=== PATIENT | female | born 1945 | race African-American/Black ===

== ENCOUNTER 2017-12-24 13:33 | Outpatient (CLI) | payer MEDICARE, OTHER ==
[~2017-12-24 13:33] MED LIST: SIMVASTATIN40 MG ORAL; [UNRECOGNIZED DRUG - REMARK] ORAL
[2017-12-25] MEDS ORDERED: GEODON40 MG ORAL (09:16)
--- NOTE | 2017-12-25 09:21 | GI Initial Consult Note ---
History of Present Illness General Date patient seen: Dec 24, 2017 Time patient seen: 15:00 Referring physician: YAHIR Reason for Consultation: ELEVATED CA19-9 Present Illness HPI 72 year old female patient referred for elevated CA 19-9 with history of pancreatic abscess. She presents today with complaint of GERD, constipation, nausea without vomiting and abdominal bloating. Her last colonoscopy was approximately 4 years ago Denies any unintentional weight loss or changes in dietary habits. No signs of abuse or neglect. Patient is not fall risk. Home Meds Reported Medications Ziprasidone Hcl* (GEODON*) 40 Mg Capsule, 60 MG ORAL DAILY, #30 CAP 0 Refills 12/25/17 Simvastatin (ZOCOR) 40 Mg Tablet, 40 MG ORAL BEDTIME, TAB 03/04/13 [Htn Pill] No Conflict Check, 1 TAB ORAL DAILY 03/04/13 Med list reviewed/reconciled: Yes Allergies: Coded Allergies: No Known Allergies (Unverified , 02/23/13) Patient History History Provided By: Patient PMH Narrative GERD Asthma Depression HTN Heart Disease Past Surgical History: R Foot Family History Narrative Family history of DM, heart disease. Social History: Reports: smoking, other - coffee Review of Systems All Other Systems: negative except mentioned in HPI Physical Exam T 97.5 BP 150/75 65 HR 95 RA HT 5'7 WT 149.5 lbs Sp02 EP Interpretation: reviewed, normal General Appearance: well appearing, no apparent distress, alert Head: normocephalic EENT: PERRL/EOMI, normal ENT inspection Neck: supple Respiratory: normal breath sounds, no respiratory distress Cardiovascular: normal rate Gastrointestinal: normal inspection, non tender, soft, normal bowel sounds, non -distended Rectal: deferred Genitourinary: no CVA tenderness Musculoskeletal: normal inspection, back normal Neurologic: normal inspection, alert, oriented x3, responsive Psychiatric: normal inspection, judgement/insight normal, memory normal Skin: normal inspection, normal color, no rash, warm/dry, palpation normal, well hydrated Lymphatic: normal inspection, no adenopathy GI: Plan Problems: (1) GERD (gastroesophageal reflux disease) (2) High serum carbohydrate antigen 19-9 (CA19-9) (3) Pancreatic abscess (4) Asthma (5) Depression (6) HTN (hypertension) (7) Heart disease (8) Constipated (9) Abdominal bloating (10) Colonoscopy planned Plan Plan for EGD/colonoscopy 01/31/18. - CLD & (Nulytely/Suprep/Movi-Prep) prep instructions given and acknowledged by patient. - NPO @ [place] day prior procedure explained. Will scheduled EUS after above procedure labs to be drawn on procedure date >> CBC, CMP, Amylase/Lipase, CEA, CA19-9 Trial of Linzess 72mcg and VSL#[address] Rebolledo. Thank you for this patient referral. The patient was seen and examined at bedside and all new and available data was reviewed in the patients chart. I agree with the above findings, impression and plan. (Patient seen earlier today. Signature stamp does not reflect patient encounter time.). - MD Noy GarciaNorthern Cochise Community HospitalSang ORACLE DEVELOPER Dec 25, 2017 09:21
== END 2017-12-24 13:35 | disposition home or self-care (01) ==
LOC: PAN 13:33
DX: K21.9 Gastro-esophageal reflux disease without esophagitis (principal); K85.90 Acute pancreatitis without necrosis or infection, unspecified; J45.909 Unspecified asthma, uncomplicated; F32.9 Major depressive disorder, single episode, unspecified; I11.9 Hypertensive heart disease without heart failure; K59.00 Constipation, unspecified; R14.0 Abdominal distension (gaseous); F17.200 Nicotine dependence, unspecified, uncomplicated
CPT/HCPCS: 99202

== ENCOUNTER 2018-01-12 10:29 | Outpatient (CLI) | payer MEDICARE, OTHER ==
[~2018-01-12 10:29] MED LIST changes: +BISACODYL5 MG ORAL; +GEODON40 MG ORAL; +LINZESS145 MCG PO
[2018-01-12 11:04] VITALS: BP 131/52
--- NOTE | 2018-01-13 12:20 | GI Progress Note ---
Assessment/Plan Problems: (1) High serum carbohydrate antigen 19-9 (CA19-9) ICD Codes: R79.89 - Other specified abnormal findings of blood chemistry SNOMED: 482852568, 966559018 (2) Pancreatic abscess ICD Codes: K85.90 - Acute pancreatitis without necrosis or infection, unspecified SNOMED: 25044827 (3) Constipated ICD Codes: K59.00 - Constipation, unspecified SNOMED: 45695872 (4) Asthma ICD Codes: J45.909 - Unspecified asthma, uncomplicated SNOMED: 354282442 (5) GERD (gastroesophageal reflux disease) ICD Codes: K21.9 - Gastro-esophageal reflux disease without esophagitis SNOMED: 862338752 (6) Abdominal bloating ICD Codes: R14.0 - Abdominal distension (gaseous) SNOMED: 935874006 (7) Gastritis ICD Codes: K29.70 - Gastritis, unspecified, without bleeding SNOMED: 7460231 (8) Antral erosion ICD Codes: K25.9 - Gastric ulcer, unspecified as acute or chronic, without hemorrhage or perforation SNOMED: 66894011, 124261169 Status: stable Status Narrative Seen with Dr. Rebolledo. Assessment/Plan SUMMARY OF FINDINGS reviewed with patient: 1. Multiple antral erosions. 2. Gastritis, status post biopsy. 3. Fair colonic prep. 4. Internal hemorrhoids. RECOMMENDATIONS: 1. Follow up biopsy results and treat accordingly. 2. We will start the patient on PPI daily given these multiple erosions pending biopsy results. 3. Given this prep, the patient will need repeat colonoscopy in three years. EUS scheduled January 18, 2018 to evaluate pancreatic mass. - NPO @ [place] day prior procedure explained. The patient was seen and examined at bedside and all new and available data was reviewed in the patients chart. I agree with the above findings, impression and plan. (Patient seen earlier today. Signature stamp does not reflect patient encounter time.). - Venkata Rebolledo MD Subjective Gastrointestinal/Abdominal: Reports: no symptoms Objective T 98.2 BP 131/57 P 76 95 RA General Appearance: WD/WN, no apparent distress, alert Cardiovascular: normal rate Respiratory/Chest: normal breath sounds, no respiratory distress Abdominal Exam: normal bowel sounds, non tender, soft Extremities: normal range of motion, non-tender Chaparro Villafuerte ASSEMBLER INSTALLER GENERAL Jan 13, 2018 12:20
== END 2018-01-12 11:01 | disposition home or self-care (01) ==
LOC: PAN 10:29
DX: K85.90 Acute pancreatitis without necrosis or infection, unspecified (principal); R79.89 Other specified abnormal findings of blood chemistry; K59.00 Constipation, unspecified; J45.909 Unspecified asthma, uncomplicated; K21.9 Gastro-esophageal reflux disease without esophagitis; R14.0 Abdominal distension (gaseous); K29.70 Gastritis, unspecified, without bleeding; K25.9 Gastric ulcer, unspecified as acute or chronic, without hemorrhage or perforation; K64.8 Other hemorrhoids
CPT/HCPCS: 99212

== ENCOUNTER → 2018-01-18 | Day surgery (SDC) | payer MEDICARE, OTHER ==
[2018-01-18] VITALS (10 sets, daily range): BP systolic 120–163; BP diastolic 52–78
[~2018-01-18] VITALS: Ht 170.2 cm; Wt 68.0 kg
[~2018-01-18] MED LIST changes: +Atropine Inj 1mg/10ml Syr IV PRN; +BP MED PO; +DiphenhydrAMINE 50mg/ml Inj IVP PRN; +HYDROcodone/Acetamin 7.5/325 tab ORAL PRN; +Hydromorphone 0.5mg/0.5ml inj IVP PRN; +Ketorolac 30mg Inj IV PRN; +LORazepam Inj 2mg/ml 1ml IV PRN; +LR 1000ml 1,000 ML IVLG SCH; +LR 1000ml ONE; +Labetalol 5mg/ml 20ml vial IV PRN; +Lidocaine 1% MPF 10mg/ml 5ml ONE; +Metoclopramide 10mg/2ml Inj IVP PRN; +Midazolam 2mg/2ml Inj IVP PRN; +Midazolam 2mg/2ml Inj ONE; +Norco 5mg/325mg tab ORAL PRN; +Propofol 200mg/20ml IV ONE; +fentaNYL 100 mcg/2 mL IV PRN; +oxyCODONE HCL/Acetaminophen 5/325mg ORAL PRN
--- NOTE | 2018-01-18 10:22 | Pre-Procedure Note/Attestation ---
Pre-Procedure Note/Attestation Complete Prior to Procedure Planned Procedure: not applicable Procedure Narrative: eus Indications for Procedure Pre-Operative Diagnosis: elevated CA19-9 Attestation I attest that I discussed the nature of the procedure; its benefits; risks and complications; and alternatives (and the risks and benefits of such alternatives ), prior to the procedure, with the patient (or the patient's legal b2b outside sales representative). I attest that, if there was a reasonable possibility of needing a blood transfusion, the patient (or the patient's legal b2b outside sales representative) was given the [facility] standardized written summary, pursuant to the Adam Pedrito Blood Safety Act ([place] Health and Safety Code # 1645, as amended). I attest that I re-evaluated the patient just prior to the surgery and that there has been no change in the patient's H&P, except as documented below: Venkata Rebolledo MD Jan 18, 2018 10:22
--- NOTE | 2018-01-18 10:23 | Short Stay Surgery H&P ---
History of Present Illness History of Present Illness Chief Complaint see recent office note HPI Natasha Dyer is a 72 year old female who was admitted on for Pancreatic Mass Patient History Allergies: Coded Allergies: No Known Allergies (Unverified , 01/18/18) Medication History Scheduled Bisacodyl* (Dulcolax*), 5 MG ORAL DAILY, (Reported) Linaclotide (Linzess), 72 MCG PO DAILY, (Reported) Physical Exam Vital Signs Last Vital Signs Date Time Temp Pulse Resp B/P (MAP) Pulse Ox O2 Delivery O2 Flow Rate FiO2 01/18/18 10:09 Room Air 01/18/18 10:02 98.5 65 18 148/73 (98) 98 98.5 Plan Attestation Are the patient's medical conditions optimized for surgery? Venkata Rebolledo MD Jan 18, 2018 10:23
--- NOTE | 2018-01-18 10:58 | Anethesia Preoperative Eval ---
Anesthesia Pre-op PMH/ROS General Date of Evaluation: Jan 18, 2018 Time of Evaluation: 10:39 Anesthesiologist: Reyna ASA Score: ASA 3 Mallampati Score Class I : Soft palate, uvula, fauces, pillars visible Class II: Soft palate, uvula, fauces visible Class III: Soft palate, base of uvula visible Class IV: Only hard plate visible Mallampati Classification: Class II Surgeon: Kesha Diagnosis: Pancreatic Mass Surgical Procedure: EUS/EGD Anesthesia History: none Family History: no anesthesia problems Allergies: Coded Allergies: No Known Allergies (Unverified , 01/18/18) Medications: see eMAR Past Medical History Cardiovascular: Reports: HTN, other - HL Pulmonary: Reports: asthma Gastrointestinal/Genitourinary: Reports: GERD - Gasritis Hematology/Immune: Reports: anemia, other - Pancreatic Mass PSxH Narrative: TL Anesthesia Pre-op Phys. Exam Physician Exam Last Vital Signs Date Time Temp Pulse Resp B/P (MAP) Pulse Ox O2 Delivery O2 Flow Rate FiO2 01/18/18 10:09 Room Air 01/18/18 10:02 98.5 65 18 148/73 (98) 98 98.5 Constitutional: NAD Neurologic: CN 2-12 intact Cardiovascular: RRR Respiratory: CTA Gastrointestinal: S/NT/ND Airway Exam Mallampati Score: Class II MO: limited ROM: limited Teeth: missing, intact Anesthesia Pre-op A/P Risk Assessment & Plan Assessment: ASA 3 Plan: TIVA Status Change Before Surgery: No Javi Orellana MD Jan 18, 2018 10:58
--- NOTE | 2018-01-18 10:59 | Immediate Post-Op Evaluation ---
Immediate Post-Op Evalulation Immediate Post-Op Evalulation Procedure: EUA/EGD Date of Evaluation: Jan 18, 2018 Time of Evaluation: 11:32 IV Fluids: 300 LR Blood Products: 0 Estimated Blood Loss: 1 Urinary Output: 0 Blood Pressure Systolic: 122 Blood Pressure Diastolic: 63 Pulse Rate: 56 Respiratory Rate: 16 O2 Sat by Pulse Oximetry: 100 Temperature (Fahrenheit): 98 Pain Score (1-10): 1 Nausea: No Vomiting: No Complications 0 Patient Status: awake, reacts, patent, none Hydration Status: adequate Javi Orellana MD Jan 18, 2018 10:59
--- NOTE | 2018-01-18 11:00 | 48 Hour Post Anesthesia Eval ---
Post Anesthesia Evaluation Procedure: EUA/EGD Date of Evaluation: Jan 18, 2018 Time of Evaluation: 13:42 Blood Pressure Systolic: 146 0: 81 Pulse Rate: 67 Respiratory Rate: 18 Temperature (Fahrenheit): 98.4 O2 Sat by Pulse Oximetry: 98 Airway: patent Nausea: No Vomiting: No Pain Intensity: 1 Hydration Status: adequate Cardiopulmonary Status: Stable Mental Status/LOC: patient returned to baseline Follow-up Care/Observations: 0 Post-Anesthesia Complications: 0 Follow-up care needed: ready to discharge Javi Orellana MD Jan 18, 2018 11:00
--- NOTE | 2018-01-18 11:42 | Endoscopy Procedure Note ---
Endoscopy Procedure Note General Indication for Procedure: elevated CA 19-9 Procedures Performed: EGD Operative Findings/Diagnosis: panc cyst Specimen: yes Pt Tolerated Procedure Well: Yes Estimated Blood Loss: none Anesthesia Anesthesiologist: regla Anesthesia: MAC Inserted Devices Implant(s) used?: No GI Core Measures 50 yrs or older w/o bx or poly: Not Applicable 10yrs. F/U not recommended: Not Applicable Venkata Rebolledo MD Jan 18, 2018 11:42
--- NOTE | 2018-01-18 17:15 | Procedure Note ---
DATE OF PROCEDURE: 01/18/2018 SURGEON: Venkata Rebolledo M.D. ANESTHESIOLOGIST: Dr. Orellana. PROCEDURE: Endoscopic ultrasound. ANESTHESIA: Per Dr. Orellana. INSTRUMENT: Olympus EUS scope. INDICATION: History of pancreatic abscess, elevated CA 19-9. The procedure, risks, benefits, and possible consequences, including hemorrhage, aspiration, perforation and infection, and alternative treatments, were explained to the patient/legal guardian by Dr. Venkata Rebolledo and the patient/legal guardian understood and accepted these risks. DESCRIPTION OF PROCEDURE: After informed consent was obtained and the patient was adequately sedated, EUS scope was advanced from the mouth into the second portion of the duodenum and pancreatic parenchyma was carefully examined through the gastroduodenal mucosa. Starting scanning at GE junction, celiac axis was evaluated. There was no obvious celiac axis lymphadenopathy. Then, the scope was gently advanced into the stomach. The pancreatic body and tail was carefully examined. There was no evidence of any pancreatitis or abscess at this time. Pancreatic duct was measured, about 3 mm in the genu and got smaller as we got close to the tail of the pancreas. There were two about 4-5 mm cystic lesions, one of them for sure was arising from main pancreatic duct, so most probably it is a side branch pancreatic IPMN and there was another one found in the area of the tail of the pancreas which also measured about 4 to 5 mm. Both seem to be connected to the main pancreatic duct and then most probably are side branch IPMNs. Then, the scope was advanced to the duodenal bulb and second portion of duodenum. The head of the pancreas was carefully examined. There was no obvious evidence of any mass or any other pathology in the head of the pancreas. Ampulla was seen. The pancreatic duct and common bile duct were not dilated at the ampulla. Gallbladder was not seen. The patient tolerated the procedure very well without any complication. SUMMARY OF FINDINGS: Two cystic lesions of about 4 to 5 mm each arising from main pancreatic duct, highly suspicious for side branch IPMN, otherwise normal EUS examination. RECOMMENDATIONS: The patient will need a follow-up EUS or imaging studies in one year to follow these two cystic lesions. Venkata Ros Rebolledo DR: [place] JOB#: [id number] CC:
--- NOTE | 2018-01-19 14:16 | Cardiology Report ---
APPROVED REPORT EKG Measurement Heart [id number] Normal sinus rhythm Normal ECG
== END | disposition home or self-care (01) ==
LOC: GAS 09:31
DX: K86.2 Cyst of pancreas (principal); I10 Essential (primary) hypertension; E78.5 Hyperlipidemia, unspecified; J45.909 Unspecified asthma, uncomplicated; K21.9 Gastro-esophageal reflux disease without esophagitis; D64.9 Anemia, unspecified
CPT/HCPCS: 43237; 93005; J2250; J2704; J7120; 94003; 94150

== ENCOUNTER 2018-02-01 12:50 | Outpatient (CLI) | payer MEDICARE, OTHER ==
[~2018-02-01 12:50] MED LIST changes: -Atropine Inj 1mg/10ml Syr IV PRN; -DiphenhydrAMINE 50mg/ml Inj IVP PRN; -HYDROcodone/Acetamin 7.5/325 tab ORAL PRN; -Hydromorphone 0.5mg/0.5ml inj IVP PRN; -Ketorolac 30mg Inj IV PRN; -LORazepam Inj 2mg/ml 1ml IV PRN; -LR 1000ml 1,000 ML IVLG SCH; -LR 1000ml ONE; -Labetalol 5mg/ml 20ml vial IV PRN; -Lidocaine 1% MPF 10mg/ml 5ml ONE; -Metoclopramide 10mg/2ml Inj IVP PRN; -Midazolam 2mg/2ml Inj IVP PRN; -Midazolam 2mg/2ml Inj ONE; -Norco 5mg/325mg tab ORAL PRN; -Propofol 200mg/20ml IV ONE; -fentaNYL 100 mcg/2 mL IV PRN; -oxyCODONE HCL/Acetaminophen 5/325mg ORAL PRN
[2018-02-01 14:34] VITALS: BP 141/63
--- NOTE | 2018-02-01 15:57 | GI Progress Note ---
Assessment/Plan Problems: (1) Small intestinal bacterial overgrowth ICD Codes: K63.89 - Other specified diseases of intestine SNOMED: 181689009 (2) Antral erosion ICD Codes: K25.9 - Gastric ulcer, unspecified as acute or chronic, without hemorrhage or perforation SNOMED: 15465528, 126937678 (3) Pancreatic abscess ICD Codes: K85.90 - Acute pancreatitis without necrosis or infection, unspecified SNOMED: 44806978 (4) GERD (gastroesophageal reflux disease) ICD Codes: K21.9 - Gastro-esophageal reflux disease without esophagitis SNOMED: 266551793 (5) Abdominal bloating ICD Codes: R14.0 - Abdominal distension (gaseous) SNOMED: 977416701 Status: stable Status Narrative Seen with Dr. Rebolledo. Assessment/Plan Xifaxan trial RTC x 1 month Needs repeat EUS x 1 year to evaluate pancreatic cyst The patient was seen and examined at bedside and all new and available data was reviewed in the patients chart. I agree with the above findings, impression and plan. (Patient seen earlier today. Signature stamp does not reflect patient encounter time.). - Venkata Rebolledo MD Subjective Subjective abdominal bloating Objective Last 24 Hour Vital Signs Date Time Temp Pulse Resp B/P (MAP) Pulse Ox O2 Delivery O2 Flow Rate FiO2 02/01/18 14:34 98.2 67 16 141/63 97 98.2 General Appearance: WD/WN, no apparent distress, alert Cardiovascular: normal rate Respiratory/Chest: normal breath sounds, no respiratory distress Abdominal Exam: normal bowel sounds, non tender, soft Extremities: normal range of motion, non-tender Chaparro Villafuerte INFORMATION SECURITY DIRECTOR Feb 01, 2018 15:57
== END 2018-02-01 13:23 | disposition home or self-care (01) ==
LOC: PAN 12:50
DX: K25.9 Gastric ulcer, unspecified as acute or chronic, without hemorrhage or perforation (principal); K63.89 Other specified diseases of intestine; K85.90 Acute pancreatitis without necrosis or infection, unspecified; K21.9 Gastro-esophageal reflux disease without esophagitis; R14.0 Abdominal distension (gaseous)
CPT/HCPCS: 99212

== ENCOUNTER 2018-02-16 11:33 | Outpatient (CLI) | payer MEDICARE, OTHER ==
[2018-02-16 15:08] VITALS: BP 130/59
--- NOTE | 2018-02-16 16:14 | GI Progress Note ---
Assessment/Plan Problems: (1) Small intestinal bacterial overgrowth ICD Codes: K63.89 - Other specified diseases of intestine SNOMED: 331168695 (2) Pancreatic abscess ICD Codes: K85.90 - Acute pancreatitis without necrosis or infection, unspecified SNOMED: 71644361 (3) GERD (gastroesophageal reflux disease) ICD Codes: K21.9 - Gastro-esophageal reflux disease without esophagitis SNOMED: 084752846 (4) Abdominal bloating ICD Codes: R14.0 - Abdominal distension (gaseous) SNOMED: 924999823 (5) Gastritis ICD Codes: K29.70 - Gastritis, unspecified, without bleeding SNOMED: 2704620 Status: stable Status Narrative Seen with Dr. Rebolledo. Assessment/Plan Complete Xifaxan trial Rx VSL#3 RTC x 1 month repeat EUS x 1 year to evaluate pancreatic cyst The patient was seen and examined at bedside and all new and available data was reviewed in the patients chart. I agree with the above findings, impression and plan. (Patient seen earlier today. Signature stamp does not reflect patient encounter time.). - Venkata Rebolledo MD Subjective Subjective abdominal bloating still present did not complete xifaxan trial, thought it was recalled (but in fact was Valsartan that had a recall) States her VSL #3 works and she needs a refill. Objective Last 24 Hour Vital Signs Date Time Temp Pulse Resp B/P (MAP) Pulse Ox O2 Delivery O2 Flow Rate FiO2 02/16/18 15:08 98.2 80 20 130/59 97 98.2 General Appearance: WD/WN, no apparent distress, alert Cardiovascular: normal rate Respiratory/Chest: normal breath sounds, no respiratory distress Abdominal Exam: normal bowel sounds, non tender, soft Extremities: normal range of motion, non-tender Chaparro Villafuerte ASSISTANT GOLF COURSE SUPERINTENDENT Feb 16, 2018 16:14
== END 2018-02-16 12:05 | disposition home or self-care (01) ==
LOC: PAN 11:33
DX: K85.90 Acute pancreatitis without necrosis or infection, unspecified (principal); K21.9 Gastro-esophageal reflux disease without esophagitis; K63.89 Other specified diseases of intestine; R14.0 Abdominal distension (gaseous); K29.70 Gastritis, unspecified, without bleeding
CPT/HCPCS: G0463

== ENCOUNTER 2018-04-06 10:54 | Outpatient (CLI) | payer MEDICARE ==
[2018-04-06 13:03] VITALS: BP 146/86
[2018-04-06] MEDS ORDERED: VSL#3 PACKET1 EAC1 PO (13:03)
--- NOTE | 2018-04-09 09:41 | GI Progress Note ---
Assessment/Plan Problems: (1) Small intestinal bacterial overgrowth ICD Codes: K63.89 - Other specified diseases of intestine SNOMED: 898369934 (2) Pancreatic abscess ICD Codes: K85.90 - Acute pancreatitis without necrosis or infection, unspecified SNOMED: 23762071 (3) GERD (gastroesophageal reflux disease) ICD Codes: K21.9 - Gastro-esophageal reflux disease without esophagitis SNOMED: 091632811 (4) Abdominal bloating ICD Codes: R14.0 - Abdominal distension (gaseous) SNOMED: 557491291 (5) Gastritis ICD Codes: K29.70 - Gastritis, unspecified, without bleeding SNOMED: 9898015 (6) High serum carbohydrate antigen 19-9 (CA19-9) ICD Codes: R79.89 - Other specified abnormal findings of blood chemistry SNOMED: 246524038, 318160882 (7) Constipated ICD Codes: K59.00 - Constipation, unspecified SNOMED: 31240014 Status: stable Status Narrative Discussed with Dr. Rebolledo. Assessment/Plan cont VSL#3 cont linzess RTC x 3 month repeat EUS x 1 year to evaluate pancreatic cyst The patient was seen and examined at bedside and all new and available data was reviewed in the patients chart. I agree with the above findings, impression and plan. (Patient seen earlier today. Signature stamp does not reflect patient encounter time.). - Venkata Rebolledo MD Subjective Subjective constipation, taking linzess 72mcg abdominal bloating, VSL 900 billion has been helping Objective T 98.1 BP 146/86 P 80 97 RA General Appearance: WD/WN, no apparent distress, alert Cardiovascular: normal rate Respiratory/Chest: normal breath sounds, no respiratory distress Abdominal Exam: normal bowel sounds, non tender, soft Extremities: normal range of motion, non-tender Chaparro Villafuerte NP Apr 09, 2018 09:41
== END 2018-04-06 11:24 | disposition home or self-care (01) ==
LOC: PAN 10:54
DX: K63.89 Other specified diseases of intestine (principal); K85.90 Acute pancreatitis without necrosis or infection, unspecified; K21.9 Gastro-esophageal reflux disease without esophagitis; R14.0 Abdominal distension (gaseous); K29.70 Gastritis, unspecified, without bleeding; R79.89 Other specified abnormal findings of blood chemistry; K59.00 Constipation, unspecified
CPT/HCPCS: 99213

== ENCOUNTER 2018-04-29 13:43 | Outpatient (CLI) | payer MEDICARE, OTHER ==
[~2018-04-29 13:43] MED LIST changes: +VSL#3 PACKET1 EAC1 PO
[2018-04-29 13:50] VITALS: BP 130/76
--- NOTE | 2018-04-29 15:29 | GI Progress Note ---
Assessment/Plan Problems: (1) High serum carbohydrate antigen 19-9 (CA19-9) ICD Codes: R79.89 - Other specified abnormal findings of blood chemistry SNOMED: 085671129, 498727718 (2) Small intestinal bacterial overgrowth ICD Codes: K63.89 - Other specified diseases of intestine SNOMED: 691824016 (3) Pancreatic abscess ICD Codes: K85.90 - Acute pancreatitis without necrosis or infection, unspecified SNOMED: 87172997 (4) Constipated ICD Codes: K59.00 - Constipation, unspecified SNOMED: 03642875 (5) GERD (gastroesophageal reflux disease) ICD Codes: K21.9 - Gastro-esophageal reflux disease without esophagitis SNOMED: 713836679 (6) Abdominal bloating ICD Codes: R14.0 - Abdominal distension (gaseous) SNOMED: 811624991 (7) Gastritis ICD Codes: K29.70 - Gastritis, unspecified, without bleeding SNOMED: 1793090 (8) Antral erosion ICD Codes: K25.9 - Gastric ulcer, unspecified as acute or chronic, without hemorrhage or perforation SNOMED: 70371257, 580102460 Status: stable Status Narrative Seen with Dr. Rebolledo. Assessment/Plan Rx Xifaxan Linzess 72mcg repeat EUS x1 year from last procedure RTC x 1 month The patient was seen and examined at bedside and all new and available data was reviewed in the patients chart. I agree with the above findings, impression and plan. (Patient seen earlier today. Signature stamp does not reflect patient encounter time.). - Venkata Rebolledo MD Subjective Subjective Abdominal pain >> Left sided on and off constipation, not on probiotics or linzesss abdominal bloating Objective t 98.4 BP 130/76 P 58 General Appearance: WD/WN, no apparent distress, alert Cardiovascular: normal rate Respiratory/Chest: normal breath sounds, no respiratory distress Abdominal Exam: normal bowel sounds, non tender, soft Extremities: normal range of motion, non-tender Chaparro Villafuerte NP Apr 29, 2018 15:29
== END 2018-04-29 14:13 | disposition home or self-care (01) ==
LOC: PAN 13:43
DX: R79.89 Other specified abnormal findings of blood chemistry (principal); K63.89 Other specified diseases of intestine; K85.90 Acute pancreatitis without necrosis or infection, unspecified; K59.00 Constipation, unspecified; K21.9 Gastro-esophageal reflux disease without esophagitis; R14.0 Abdominal distension (gaseous); K29.70 Gastritis, unspecified, without bleeding; K25.9 Gastric ulcer, unspecified as acute or chronic, without hemorrhage or perforation
CPT/HCPCS: G0463

== ENCOUNTER 2018-09-13 14:30 | Outpatient (CLI) | payer MEDICARE, OTHER ==
--- NOTE | 2018-09-13 14:57 | General Progress Note ---
Assessment/Plan Problem List: (1) Small intestinal bacterial overgrowth ICD Codes: K63.89 - Other specified diseases of intestine SNOMED: 560232089 (2) Constipated ICD Codes: K59.00 - Constipation, unspecified SNOMED: 70329431 (3) GERD (gastroesophageal reflux disease) ICD Codes: K21.9 - Gastro-esophageal reflux disease without esophagitis SNOMED: 247155011 (4) Abdominal bloating ICD Codes: R14.0 - Abdominal distension (gaseous) SNOMED: 095877456 (5) Gastritis ICD Codes: K29.70 - Gastritis, unspecified, without bleeding SNOMED: 9575912 (6) HTN (hypertension) ICD Codes: I10 - Essential (primary) hypertension SNOMED: 05566734 (7) Depression ICD Codes: F32.9 - Major depressive disorder, single episode, unspecified SNOMED: 91836663 Assessment/Plan trial of creon refill linzess rtc one month Subjective ROS Limited/Unobtainable: Yes Allergies: Coded Allergies: No Known Allergies (Unverified , 01/18/18) Objective General Appearance: alert EENT: normal ENT inspection Neck: supple Cardiovascular: normal rate Respiratory/Chest: lungs clear Abdomen: normal bowel sounds, non tender, soft Extremities: non-tender Venkata Rebolledo MD Sep 13, 2018 14:57
[2018-09-14 09:57] VITALS: BP 137/67
== END 2018-09-13 16:30 | disposition home or self-care (01) ==
LOC: PAN 14:30
DX: K63.89 Other specified diseases of intestine (principal); K59.00 Constipation, unspecified; K21.9 Gastro-esophageal reflux disease without esophagitis; R14.0 Abdominal distension (gaseous); K29.70 Gastritis, unspecified, without bleeding; I10 Essential (primary) hypertension; F32.9 Major depressive disorder, single episode, unspecified
CPT/HCPCS: G0463

== ENCOUNTER 2018-10-20 13:40 | Outpatient (CLI) | payer MEDICARE, MEDICAID ==
--- NOTE | 2018-10-20 14:57 | General Progress Note ---
Assessment/Plan Problem List: (1) Small intestinal bacterial overgrowth ICD Codes: K63.89 - Other specified diseases of intestine SNOMED: 148276804 (2) Constipated ICD Codes: K59.00 - Constipation, unspecified SNOMED: 44369276 (3) HTN (hypertension) ICD Codes: I10 - Essential (primary) hypertension SNOMED: 03373920 (4) GERD (gastroesophageal reflux disease) ICD Codes: K21.9 - Gastro-esophageal reflux disease without esophagitis SNOMED: 832554526 (5) Abdominal bloating ICD Codes: R14.0 - Abdominal distension (gaseous) SNOMED: 778178204 (6) Gastritis ICD Codes: K29.70 - Gastritis, unspecified, without bleeding SNOMED: 6290701 (7) Depression ICD Codes: F32.9 - Major depressive disorder, single episode, unspecified SNOMED: 28635231 (8) High serum carbohydrate antigen 19-9 (CA19-9) ICD Codes: R79.89 - Other specified abnormal findings of blood chemistry SNOMED: 157329012, 709471033 (9) Antral erosion ICD Codes: K25.9 - Gastric ulcer, unspecified as acute or chronic, without hemorrhage or perforation SNOMED: 53975358, 921383100 (10) Pancreatic abscess ICD Codes: K85.90 - Acute pancreatitis without necrosis or infection, unspecified SNOMED: 74523609 (11) Asthma ICD Codes: J45.909 - Unspecified asthma, uncomplicated SNOMED: 375423027 (12) Colonoscopy planned SNOMED: 422385029 (13) Heart disease ICD Codes: I51.9 - Heart disease, unspecified SNOMED: 30614027 Assessment/Plan increase linzess to 290 obtain records of recent MRI rtc prn Subjective ROS Limited/Unobtainable: Yes Allergies: Coded Allergies: No Known Allergies (Unverified , 01/18/18) Objective General Appearance: alert EENT: normal ENT inspection Neck: supple Cardiovascular: normal rate Respiratory/Chest: decreased breath sounds Abdomen: normal bowel sounds, non tender, soft Extremities: non-tender Venkata Rebolledo MD Oct 20, 2018 14:57
[2018-10-20] MEDS ORDERED: LINZESS290 MCG PO (15:22)
[2018-10-20 15:24] VITALS: BP 111/63
== END 2018-10-20 16:14 | disposition home or self-care (01) ==
LOC: PAN 13:40
DX: K59.00 Constipation, unspecified (principal); I10 Essential (primary) hypertension; K21.9 Gastro-esophageal reflux disease without esophagitis; R14.0 Abdominal distension (gaseous); K29.70 Gastritis, unspecified, without bleeding; F32.9 Major depressive disorder, single episode, unspecified; K63.89 Other specified diseases of intestine; K25.9 Gastric ulcer, unspecified as acute or chronic, without hemorrhage or perforation; K85.90 Acute pancreatitis without necrosis or infection, unspecified; J45.909 Unspecified asthma, uncomplicated; I51.9 Heart disease, unspecified